=== PATIENT | male | born 2005 | race Caucasian/White ===

== ENCOUNTER 2023-07-11 06:10 | Day surgery (SDC) | payer BC ==
[2023-07-10 14:13] VITALS: BMI 19.8
[2023-07-11] MEDS ORDERED: HYDROmorphone 2 MG/ML VIAL ONE (06:23)
[2023-07-11] MEDS ORDERED: fentaNYL 50 mcg/mL 1 mL Vial ONE ×3 (06:24→09:39)
[2023-07-11] MEDS ORDERED: Midazolam HCl 2 mg/2 ml Vial ONE (06:24)
[2023-07-11] MEDS ORDERED: PROPOFOL 20 ML ONE (06:24)
[2023-07-11] MEDS ORDERED: Bupivacaine PF 0.5% 30 ML VIAL ONE (06:27)
[2023-07-11] MEDS ORDERED: Dexamethasone 4 mg/ml Vial ONE (06:29)
[2023-07-11] MEDS ORDERED: Lidocaine 1% PF 5 ML VIAL ONE (06:29)
[2023-07-11] MEDS ORDERED: Rocuronium Bromide 10 MG/ML (10ML VIAL) ONE (06:29)
[2023-07-11] MEDS ORDERED: Ondansetron PF 4 MG/2 ML Vial ONE (06:29)
[2023-07-11] MEDS ORDERED: CEFAZOLIN 2 GM VIAL ONE (07:06)
[2023-07-11] MEDS ORDERED: Sodium Chloride 0.9% 100 ML ONE (07:06)
[2023-07-11] MEDS ORDERED: PHENYLEPHRINE-NS 100 MCG/ML 10 ML SYRINGE ONE (07:53)
[2023-07-11] MEDS ORDERED: Glycopyrrolate 0.2 MG/ML 5 ML SYRINGE ONE (07:55)
[2023-07-11] MEDS ORDERED: SUGAMMADEX SODIUM 200 MG/2 ML VIAL ONE (08:28)
[2023-07-11] MEDS ORDERED: Ketorolac Tromethamine 30 MG (1 mL) VIAL ONE (09:23)
== END 2023-07-11 12:40 | disposition home or self-care (01) ==
LOC: SDC 06:10
PROVIDERS: ATTEND Orthopaedic Surgery
PROC: 0PS904Z Reposition Right Clavicle with Internal Fixation Device, Open Approach (ICD-10-PCS; principal; 2023-07-11)
DX: S42.021A Displaced fracture of shaft of right clavicle, initial encounter for closed fracture (principal); Z87.891 Personal history of nicotine dependence; W19.XXXA Unspecified fall, initial encounter; Y93.51 Activity, roller skating (inline) and skateboarding
CPT/HCPCS: C1713; J0665; J1100; J1170; J1885; J2250; J2405; J2704; J3010; J3490

== ENCOUNTER 2024-05-26 10:11 | Day surgery (SDC) | payer BC ==
[2024-05-25 12:50] VITALS: BMI 19.8
[2024-05-26] MEDS ORDERED: Rocuronium Bromide 10 MG/ML (10ML VIAL) ONE (12:03)
[2024-05-26] MEDS ORDERED: Dexamethasone 20 MG/5 ML VIAL ONE (12:03)
[2024-05-26] MEDS ORDERED: Lidocaine 1% PF 5 ML VIAL ONE (12:03)
[2024-05-26] MEDS ORDERED: Ondansetron PF 4 MG/2 ML Vial ONE (12:03)
[2024-05-26] MEDS ORDERED: fentaNYL PF 100 MCG/2 ML SYRINGE ONE (12:03)
[2024-05-26] MEDS ORDERED: PROPOFOL 20 ML ONE ×2 (12:03→13:13)
[2024-05-26] MEDS ORDERED: Midazolam HCl 2 mg/2 ml Vial ONE ×2 (12:03→12:34)
[2024-05-26] MEDS ORDERED: Sodium Chloride 0.9% 100 ML ONE (12:34)
[2024-05-26] MEDS ORDERED: CEFAZOLIN 2 GM VIAL ONE (12:34)
[2024-05-26] MEDS ORDERED: ePHEDrine Sulfate 50 MG/10 ML VIAL ONE (13:08)
[2024-05-26] MEDS ORDERED: Meperidine HCl/PF 25 MG (1 mL) VIAL ONE (14:05)
[2024-05-26] MEDS ORDERED: HYDROcodone/Acetaminophen 5/325 mg Tablet ONE (14:43)
== END 2024-05-26 15:30 | disposition home or self-care (01) ==
LOC: SDC 10:11
PROVIDERS: ATTEND Orthopaedic Surgery
PROC: 2W5 Placement, Anatomical Regions, Removal (ICD-10-PCS; principal; 2024-05-26)
DX: T85.848A Pain due to other internal prosthetic devices, implants and grafts, initial encounter (principal); S42.021D Displaced fracture of shaft of right clavicle, subsequent encounter for fracture with routine healing; Z87.891 Personal history of nicotine dependence; Z98.890 Other specified postprocedural states; Z79.899 Other long term (current) drug therapy; X58.XXXD Exposure to other specified factors, subsequent encounter; Y83.9 Surgical procedure, unspecified as the cause of abnormal reaction of the patient, or of later complication, without mention of misadventure at the time of the procedure
CPT/HCPCS: A6223; A6258; J1100; J2175; J2250; J2405; J2704